=== PATIENT | male | born 1940 | race Caucasian/White ===

== ENCOUNTER 2019-08-11 16:16 | Emergency (ER) | payer OTHER ==
[~2019-08-11] VITALS: Ht 182.9 cm; Wt 78.5 kg
[2019-08-11 16:22] VITALS: Ht 182.9 cm; Wt 78.5 kg
[2019-08-11 19:33] VITALS: BP 162/100
== END 2019-08-11 19:35 | disposition short-term general hospital (02) ==
LOC: ED 16:16
DX: S62.633A Displaced fracture of distal phalanx of left middle finger, initial encounter for closed fracture (principal); S61.215A Laceration without foreign body of left ring finger without damage to nail, initial encounter; W45.8XXA Other foreign body or object entering through skin, initial encounter; Y93.89 Activity, other specified; Y92.89 Other specified places as the place of occurrence of the external cause; Y99.8 Other external cause status
CPT/HCPCS: 90715; J0690; J2001; J2270; J2405; J7030; Q0092